=== PATIENT | female | born 1995 | race Two or more races ===

== ENCOUNTER 2019-10-18 20:54 | Emergency (ER) | payer MEDICAID ==
[~2019-10-18] VITALS: Ht 160 cm; Wt 79.4 kg
[~2019-10-18 20:54] MED LIST: ALBUTEROL; BENTYL10 MG ORAL; IBUPROFEN600 MG PO; MACROBID 100 M100 MG PO; MOTRIN800 MG PO; NKM; OMEPRAZOLE20 M3 ORAL; ONDANSETRON ODT4 MG ORAL; VICODIN 5-5001 EACH PO
[2019-10-18 21:20] VITALS: BP 105/71
[2019-10-18] MEDS ORDERED: Acetaminophen 500mg (ES) tab ORAL ONE (21:45)
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
[2019-10-18] MEDS ORDERED: ROBAXIN-750750 MG PO (22:29)
[2019-10-18] MEDS ORDERED: TYLENOL EXTRA500 MG ORAL (22:29)
[2019-10-18 22:55] VITALS: BP 116/78
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
== END 2019-10-18 22:55 | disposition home or self-care (01) ==
LOC: EMR 21:41
DX: S13.4XXA Sprain of ligaments of cervical spine, initial encounter (principal); M54.2 Cervicalgia; M54.5 Low back pain; J45.909 Unspecified asthma, uncomplicated; V43.52XA Car driver injured in collision with other type car in traffic accident, initial encounter; Y92.411 Interstate highway as the place of occurrence of the external cause
CPT/HCPCS: 71046; 72040; Z7502; 99284

== ENCOUNTER 2020-01-03 20:26 | Emergency (ER) | payer MEDICAID ==
[~2020-01-03] VITALS: Ht 160 cm; Wt 81.6 kg
[~2020-01-03 20:26] MED LIST changes: +ROBAXIN-750750 MG PO; +TYLENOL EXTRA500 MG ORAL
[2020-01-03] MEDS ORDERED: Augmentin 875mg Tab ORAL ONE (20:45)
[2020-01-03] MEDS ORDERED: AUGMENTIN 875-1 EAC1 ORAL (20:47)
[2020-01-03] MEDS ORDERED: NORCO 5-325 TA1 EAC1 ORAL (20:47)
--- NOTE | 2020-01-03 20:47 | NUR ---
ED Nurse Note: Patient walked into ED c/o right lower tooth pain, states that pain started yesterday, states that she was unable to see dentist today. vss, nad, aaox4, ambulatory.
[2020-01-03 20:54] VITALS: BP 133/94
[2020-01-03 20:55] VITALS: BP 133/84
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
--- NOTE | 2020-01-03 20:55 | NUR ---
ER DISCHARGE NOTE: Patient is cleared to be discharged per ERMD, pt is aox4, on room air, with stable vital signs. pt was given dc and prescription instructions, pt was able to verbalize understanding, pt id band removed without complications. pt is able to ambulate with steady gait. pt took all belongings.
== END 2020-01-03 20:55 | disposition home or self-care (01) ==
LOC: EMR 20:45
DX: K02.9 Dental caries, unspecified (principal); J45.909 Unspecified asthma, uncomplicated; E66.9 Obesity, unspecified; Z68.31 Body mass index [BMI] 31.0-31.9, adult
CPT/HCPCS: 99282

== ENCOUNTER 2020-02-26 17:14 | Emergency (ER) | payer MEDICAID ==
[~2020-02-26] VITALS: Ht 160 cm; Wt 83.5 kg
[~2020-02-26 17:14] MED LIST changes: +AUGMENTIN 875-1 EAC1 ORAL; +NORCO 5-325 TA1 EAC1 ORAL
[2020-02-26 17:55] VITALS: BP 132/78
--- NOTE | 2020-02-26 20:11 | Emergency Room Report ---
History of Present Illness General Chief Complaint: Eye Problems Source: Patient Present Illness HPI This patient left after triage, and prior to evaluation by medical provider. 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 COVID-19 Screening: Negative COVID-19 COVID-19 Testing Source: nasal Patient History Past Medical History: see triage record Now: No Nursing Documentation-[facility] Past Medical History: No History, Except For Hx Cardiac Problems: No Hx Hypertension: No Hx Pacemaker: No Hx Asthma: Yes Hx COPD: No Hx Diabetes: No Hx Cancer: No Hx Gastrointestinal Problems: No Hx Dialysis: No Hx Neurological Problems: No Hx Cerebrovascular Accident: No Hx Seizures: No Physical Exam Vital Signs Date Time Temp Pulse Resp B/P (MAP) Pulse Ox O2 Delivery O2 Flow Rate FiO2 02/26/20 17:55 98.2 102 16 132/78 (96) 99 Room Air Medical Decision Making PA Attestation Dr. Pitts is my supervising Physician whom patient management has been discussed with. Diagnostic Impression: Primary Impression: Eloped from emergency department ER Course This patient left after triage, and prior to evaluation by medical provider. Last Vital Signs Date Time Temp Pulse Resp B/P (MAP) Pulse Ox O2 Delivery O2 Flow Rate FiO2 02/26/20 17:55 98.2 102 16 132/78 (96) 99 Room Air Disposition: ELOPED Condition: Unknown Referrals: [facility] (PCP) Stephanie Finley Feb 26, 2020 20:11
== END 2020-02-26 18:40 | disposition left against medical advice (07) ==
LOC: EMR 17:55
DX: S05.90XS Unspecified injury of unspecified eye and orbit, sequela (principal); Z53.21 Procedure and treatment not carried out due to patient leaving prior to being seen by health care provider
CPT/HCPCS: 99281